=== PATIENT | male | born 1995 | race Caucasian/White ===

== ENCOUNTER 2020-07-22 15:02 | Emergency (ER) | payer OTHER ==
[~2020-07-22] VITALS: Ht 177.8 cm; Wt 108.9 kg
[2020-07-22 15:15] VITALS: BP 147/83
--- NOTE | 2020-07-22 15:19 | NUR ---
BOBBI CABRAL AT BEDSIDE FOR EVAL.
[2020-07-22] MEDS ORDERED: KETOROLAC TROMETHAMINE INJ 60 MG/2 ML VIAL IM ONE (15:30)
[2020-07-22] MEDS ORDERED: KETOROLAC TROMETHAMINE INJ 30 MG/ML VIAL ONE (15:38)
--- NOTE | 2020-07-22 15:38 | NUR ---
BRICK LAYER AT BEDSIDE FOR XRAY.
--- NOTE | 2020-07-22 16:38 | NUR ---
OLGA SMITH AT BEDSIDE FOR SPLINTING.
[2020-07-22] MEDS ORDERED: NAPR-1164 PO (16:45)
--- NOTE | 2020-07-22 16:56 | NUR ---
Patient discharged to home in stable condition. Written and verbal after care instructions given. Patient verbalizes understanding of instruction.
== END 2020-07-22 16:57 | disposition home or self-care (01) ==
LOC: ER 15:05
DX: S52.571A Other intraarticular fracture of lower end of right radius, initial encounter for closed fracture (principal); S30.1XXA Contusion of abdominal wall, initial encounter; S20.313A Abrasion of bilateral front wall of thorax, initial encounter; T23.301A Burn of third degree of right hand, unspecified site, initial encounter; F17.200 Nicotine dependence, unspecified, uncomplicated; F10.10 Alcohol abuse, uncomplicated; W05.2XXA Fall from non-moving motorized mobility scooter, initial encounter; Y93.89 Activity, other specified; Y92.89 Other specified places as the place of occurrence of the external cause; Y99.8 Other external cause status; Y90.9 Presence of alcohol in blood, level not specified
CPT/HCPCS: 29125; 73110; 96372; 99283; 99406; J1885